=== PATIENT | female | born 1985 | race Caucasian/White ===

== ENCOUNTER 2019-06-05 13:23 | Emergency (ER) | payer OTHER ==
[~2019-06-05] VITALS: Ht 152.4 cm; Wt 84.1 kg
[2019-06-05 13:27] VITALS: BP 145/87
--- NOTE | 2019-06-05 13:40 | NUR ---
33F C/O ABD CRAMPING X1 WEEK, VAGINAL BLEEDING X4 DAYS, AND VAGINAL PAIN STARTING LAST NIGHT. 1-3 WEEKS PREGNEANT, LMP 05/17/19, , KATHLEEN 02/22/20. WAS AT [facility] ON SUNDAY FOR SAME ABD CRAMPING, FOUND OUT SHE WAS . BEDRAILS UP X1, BED LOCKED AND LOW. ERMD TO EVAL PATIENT. MEDHX:GASTRITIS RX:PRENATALS, FOLIC ACID
--- NOTE | 2019-06-05 14:32 | NUR ---
URINE SAMPLE TAKEN BY LAB.
[2019-06-05 14:35] LABS: APPEARANCE,URINE SL CLOUDY (CLEAR); BILIRUBIN,URINE NEGATIVE (NEGATIVE); BLOOD, URINE 3+ (NEGATIVE); COLOR,URINE DARK YELLOW (YELLOW); LEUKOCYTE ESTERASE ,URINE 2+ (NEGATIVE); NITRITE, URINE NEGATIVE (NEGATIVE); UGLUCOSE NEGATIVE (NEGATIVE)
[2019-06-05 14:54] LABS: RBC,URINE 11-20 (MOD) /HPF (0-5); WBC,URINE >25 (MANY) /HPF (0-5)
--- NOTE | 2019-06-05 15:51 | NUR ---
US TECH AT BEDSIDE
--- NOTE | 2019-06-05 17:06 | NUR ---
RHINA BUCKLEY FOR PELVIC EXAM.
--- NOTE | 2019-06-05 17:06 | NUR ---
DR. BUCKLEY BEDSIDE EVALUATING PT
--- NOTE | 2019-06-05 17:55 | NUR ---
DR. BYRD AT BEDSIDE.
[2019-06-05 18:10] VITALS: BP 123/76
--- NOTE | 2019-06-05 18:10 | NUR ---
Patient discharged with v/s stable. Written and verbal after care instructions given and explained. Patient verbalized understanding. Ambulatory with steady gait with at side. All questions addressed prior to discharge. Advised to follow up with PMD.
== END 2019-06-05 18:10 | disposition home or self-care (01) ==
LOC: MED 13:23
DX: O26.891 Other specified pregnancy related conditions, first trimester (principal); R10.30 Lower abdominal pain, unspecified; O20.9 Hemorrhage in early pregnancy, unspecified; Z3A.01 Less than 8 weeks gestation of pregnancy; Z91.018 Allergy to other foods; Z88.6 Allergy status to analgesic agent; Z91.011 Allergy to milk products; Z87.19 Personal history of other diseases of the digestive system
CPT/HCPCS: 36415; 76801; 81001; 84702; 86901; 87086; 99284; Q0092

== ENCOUNTER 2020-01-10 11:56 | Emergency (ER) | payer OTHER ==
[~2020-01-10] VITALS: Ht 152.4 cm; Wt 80.8 kg
[2020-01-10 12:15] VITALS: BP 149/90
--- NOTE | 2020-01-10 12:23 | NUR ---
34 Y/O F C/C RLQ ABD PAIN 11/28, NON RADIATING, PULSATING SENSATION X THIS MORNING. PER PT DISCOMFORT. PT FURTHER SPOTTING X 1 DAY. PER PT 6 WEEKS . PREG HX TWO PREGNANCIES, ONE MISCARRIAGE. ALLERGIES TYLENOL. HX ASTHMA, POCS. NO RX. NO N/V. PT C/C OF DIARRHEA X 1 DAY. SIDE RAIL X1. FAMILY AT BEDSIDE.
[2020-01-10] MEDS ORDERED: PREN-380 PO (12:27)
[2020-01-10] MEDS ORDERED: PRON INH (12:27)
[2020-01-10 13:31] LABS: BASOPHILS # (AUTO) 0.1 K/uL (0.00-0.22); BASOPHILS % (AUTO) 0.8 % (0.0-2.0); EOSINOPHILS # (AUTO) 0.2 K/uL (0-0.4); EOSINOPHILS % (AUTO) 2.4 % (0.0-4.0); HEMATOCRIT 43.2 % (36-48); HEMOGLOBIN 14.9 g/dL (12.0-16.0); LYMPHOCYTES % (AUTO) 26.5 % (20.5-51.1); MEAN CORPUSCULAR HEMOGLOBIN 31 pg (27-31); MEAN CORPUSCULAR HGB CONC 35 g/dL (33-37); MEAN CORPUSCULAR VOLUME 90.5 fL (80-94); MONOCYTES # (AUTO) 0.4 K/uL (0.8-1.0); NEUTROPHILS # (AUTO) 4.8 K/uL (1.8-7.7); NEUTROPHILS % (AUTO) 65.3 % (42.2-75.2); PLATELET COUNT (AUTO) 313 K/uL (140-450); RED BLOOD CELL COUNT(AUTO) 4.77 MIL/uL (4.20-5.40); RED CELL DISTRIBUTION WIDTH 12.9 % (11.6-13.7); WHITE BLOOD COUNT (AUTO) 7.4 K/uL (4.8-10.8)
--- NOTE | 2020-01-10 13:58 | NUR ---
PT RESTING IN BED, SIDE RAIL X1
[2020-01-10 14:43] LABS: APPEARANCE,URINE CLEAR (CLEAR); BILIRUBIN,URINE NEGATIVE (NEGATIVE); BLOOD, URINE NEGATIVE (NEGATIVE); COLOR,URINE YELLOW (YELLOW); LEUKOCYTE ESTERASE ,URINE TRACE (NEGATIVE); NITRITE, URINE NEGATIVE (NEGATIVE); PH,URINE 6.5 (5.0-9.0); UGLUCOSE NEGATIVE (NEGATIVE)
[2020-01-10 14:52] LABS: RBC,URINE 0 /HPF (0-5); WBC,URINE 0-5 /HPF (0-5)
[2020-01-10 15:32] VITALS: BP 142/84
--- NOTE | 2020-01-10 15:32 | NUR ---
Patient discharged with v/s stable. Written and verbal after care instructions given and explained. Patient verbalized understanding. Ambulatory with steady gait. All questions addressed prior to discharge. Advised to follow up with PMD.
== END 2020-01-10 15:32 | disposition home or self-care (01) ==
LOC: MED 11:56
DX: O46.91 Antepartum hemorrhage, unspecified, first trimester (principal); O26.91 Pregnancy related conditions, unspecified, first trimester; R10.9 Unspecified abdominal pain; J45.909 Unspecified asthma, uncomplicated; Z79.899 Other long term (current) drug therapy; Z88.6 Allergy status to analgesic agent; Z91.018 Allergy to other foods
CPT/HCPCS: 36415; 76817; 81001; 81025; 84702; 85025; 86900; 86901; 99284; Q0092

== ENCOUNTER 2020-01-14 16:36 | Emergency (ER) | payer OTHER ==
[~2020-01-14] VITALS: Ht 152.4 cm; Wt 80.3 kg
[~2020-01-14 16:36] MED LIST: PREN-380 PO; PRON INH
[2020-01-14 16:43] VITALS: BP 133/69
--- NOTE | 2020-01-14 17:05 | NUR ---
34 YO F, , CURRENTLY 4 WEEKS AOG, C/O VAGINAL BLEEDING SINCE THIS AM. PT STATES ACCOMPANYING LOWER ABDOMINAL PAIN- 5/10, CRAMPING. +NAUSEA, -VOMITING. PATIENT POSITIONED COMFORTABLY IN BED. CHANGED TO PT GOWN. URINE COLLECTED. ERMD MADE AWARE. PMH: PCOS, ASTHMA MEDS: , VIT D ALLERGIES: ACETAMINOPHEN, DAIRY, WHEAT
[2020-01-14 17:50] LABS: BASOPHILS # (AUTO) 0.1 K/uL (0.00-0.22); EOSINOPHILS # (AUTO) 0.2 K/uL (0-0.4); EOSINOPHILS % (AUTO) 1.8 % (0.0-4.0); HEMATOCRIT 42.9 % (36-48); HEMOGLOBIN 14.6 g/dL (12.0-16.0); LYMPHOCYTES # (AUTO) 2.1 K/uL (2.5-16.5); LYMPHOCYTES % (AUTO) 23.4 % (20.5-51.1); MEAN CORPUSCULAR HEMOGLOBIN 31 pg (27-31); MEAN CORPUSCULAR HGB CONC 34 g/dL (33-37); MEAN CORPUSCULAR VOLUME 90.5 fL (80-94); MONOCYTES # (AUTO) 0.5 K/uL (0.8-1.0); MONOCYTES % (AUTO) 5.9 % (1.7-9.3); NEUTROPHILS % (AUTO) 67.9 % (42.2-75.2); PLATELET COUNT (AUTO) 316 K/uL (140-450); RED BLOOD CELL COUNT(AUTO) 4.74 MIL/uL (4.20-5.40); RED CELL DISTRIBUTION WIDTH 12.8 % (11.6-13.7); WHITE BLOOD COUNT (AUTO) 8.8 K/uL (4.8-10.8)
[2020-01-14 19:31] LABS: APPEARANCE,URINE CLEAR (CLEAR); BILIRUBIN,URINE NEGATIVE (NEGATIVE); BLOOD, URINE 2+ (NEGATIVE); COLOR,URINE YELLOW (YELLOW); LEUKOCYTE ESTERASE ,URINE TRACE (NEGATIVE); NITRITE, URINE NEGATIVE (NEGATIVE); UGLUCOSE NEGATIVE (NEGATIVE)
[2020-01-14 19:35] VITALS: BP 133/69
--- NOTE | 2020-01-14 19:35 | NUR ---
Patient discharged with v/s stable. Written and verbal after care instructions about in first trimester given and explained. Patient verbalized understanding. Ambulatory with steady gait. All questions addressed prior to discharge. Advised to follow up with PMD and OB
[2020-01-14 19:44] LABS: WBC,URINE 0-5 /HPF (0-5)
== END 2020-01-14 19:35 | disposition home or self-care (01) ==
LOC: MED 16:36
DX: O46.91 Antepartum hemorrhage, unspecified, first trimester (principal); O26.891 Other specified pregnancy related conditions, first trimester; R10.9 Unspecified abdominal pain; J45.909 Unspecified asthma, uncomplicated; Z79.899 Other long term (current) drug therapy; Z88.6 Allergy status to analgesic agent; Z91.018 Allergy to other foods
CPT/HCPCS: 36415; 81001; 81025; 84702; 85025; 99283

== ENCOUNTER 2020-01-17 10:31 | Inpatient (IN) | payer OTHER ==
[~2020-01-17] VITALS: Ht 152.4 cm; Wt 80.0 kg
[2020-01-17 10:32] VITALS: BP 114/69
--- NOTE | 2020-01-17 10:36 | NUR ---
Patient ambulated to bed 7. RN evaluating patient at bedside.
[2020-01-17] MEDS ORDERED: NACL 0.9% 1,000 ML IV ONE (10:45)
--- NOTE | 2020-01-17 11:05 | NUR ---
Dr. Parisi is evaluating the patient at bedside.
[2020-01-17 11:11] LABS: BASOPHILS % (AUTO) 0.6 % (0.0-2.0); EOSINOPHILS # (AUTO) 0.2 K/uL (0-0.4); EOSINOPHILS % (AUTO) 2.5 % (0.0-4.0); HEMATOCRIT 41.8 % (36-48); HEMOGLOBIN 14.8 g/dL (12.0-16.0); LYMPHOCYTES # (AUTO) 1.6 K/uL (2.5-16.5); LYMPHOCYTES % (AUTO) 21.1 % (20.5-51.1); MEAN CORPUSCULAR HEMOGLOBIN 32 pg (27-31); MEAN CORPUSCULAR HGB CONC 36 g/dL (33-37); MEAN CORPUSCULAR VOLUME 89.5 fL (80-94); MONOCYTES # (AUTO) 0.4 K/uL (0.8-1.0); MONOCYTES % (AUTO) 4.8 % (1.7-9.3); NEUTROPHILS # (AUTO) 5.3 K/uL (1.8-7.7); PLATELET COUNT (AUTO) 308 K/uL (140-450); RED BLOOD CELL COUNT(AUTO) 4.67 MIL/uL (4.20-5.40); RED CELL DISTRIBUTION WIDTH 12.8 % (11.6-13.7); WHITE BLOOD COUNT (AUTO) 7.5 K/uL (4.8-10.8)
[2020-01-17 11:43] LABS: PROTHROMBIN TIME 10.4 secs (10.8-13.4)
[2020-01-17 11:45] LABS: ALBUMIN 3.8 g/dL (3.4-5.0); ANION GAP 12.9 (8-16); CARBON DIOXIDE 25.1 mmol/L (21-32); CREATININE 0.8 mg/dL (0.6-1.3); TOTAL BILIRUBIN 0.3 mg/dL (0.0-1.0)
--- NOTE | 2020-01-17 11:45 | NUR ---
PT REFFERED TO ER FOR ADMISSION BY DR BYRD FOR D&C AFTER MISSED MISCARRAIGE. PT DENIES PAIN OR ACTIVE VAGINAL BLEEDING AT THIS TIME. BED IN LOW POSITION, PT PROVIDED WITH GOWN AND BLANKET.
--- NOTE | 2020-01-17 12:34 | NUR ---
ADMITTED TO [facility]--ER TO OR FOR PROCEDURE THEN TO ROOM---REPORT GIVEN TO TO [place] OR
[2020-01-17] MEDS ORDERED: DEXAMETHASONE 4 MG/ML VIAL ONE (13:40)
[2020-01-17] MEDS ORDERED: MIDAZOLAM 2 MG/2 ML VIAL ONE (13:40)
[2020-01-17] MEDS ORDERED: fentaNYL 0.05 MG/ML VIAL ONE (13:40)
[2020-01-17] MEDS ORDERED: ONDANSETRON 4 MG/2 ML VIAL ONE (13:40)
[2020-01-17] MEDS ORDERED: PROPOFOL 200 MG/20 ML VIAL IV ONE (13:40)
[2020-01-17] MEDS ORDERED: KETOROLAC 30 MG/ML VIAL ONE (13:40)
[2020-01-17] MEDS ORDERED: MEPERIDINE 50 MG/ML SYR ONE (13:40)
[2020-01-17] MEDS ORDERED: LACTATED RINGERS 1,000 ML IV SCH (14:27)
[2020-01-17] MEDS ORDERED: ONDANSETRON 4 MG/2 ML VIAL IVP PRN (14:30)
[2020-01-17] MEDS ORDERED: diphenhydrAMINE 50 MG/ML VIAL IVP PRN (14:30)
[2020-01-17] MEDS ORDERED: HYDROmorphone 1 MG/ML AMP IVP PRN (14:30)
[2020-01-17] MEDS ORDERED: MEPERIDINE 25 MG/ML SYR IVP PRN (14:30)
[2020-01-17] MEDS ORDERED: HYDROmorphone PFS 2 MG/ML SYR ONE (14:55)
[2020-01-17] MEDS ORDERED: KETOROLAC 30 MG/ML VIAL IVP SCH (15:15)
[2020-01-17 15:25] VITALS: BP 113/64
--- NOTE | 2020-01-17 15:25 | NUR ---
Patient admitted into room 112B from OR via hospital bed. Received bedside report from OR nurse Andra. Pt drowsy, able to open eyes, respond verbally, and follow simple commands. Oriented x 4. Left hand IV intact with ongoing LR @ 120ml/hr. Medical hx obtained from patient. No signs if distress, no c/o pain. Pt oriented to room & unit, verbalized understanding. Call light within reach. Called spouse Tien on the phone per pt request and notified of admission to M/S floor.
--- NOTE | 2020-01-17 15:52 | NUR ---
Tien (spouse) arrived at bedside to visit pt.
--- NOTE | 2020-01-17 16:49 | NUR ---
Pt assisted to toilet, able to amb with handheld assist. Pt voided moderate amount urine, sanguineous vaginal discharge present. Able to amb back to bed with standby assist. No bladder distention palpated. Spouse at bedside.
--- NOTE | 2020-01-17 17:45 | NUR ---
Dinner tray provided to patient. Assisted to upright position with overbed tray in front of pt. Informed patient that per Dr Hilliard, she is ok to discharge home if voiding well and tolerating food. Pt verbalized understanding. Spouse at bedside.
--- NOTE | 2020-01-17 18:15 | NUR ---
Patient states the smell of pasta is making her nauseated. Ordered chicken broth. Pt tolerated fluids well.
--- NOTE | 2020-01-17 18:31 | NUR ---
Chicken broth provided. Pt c/o nausea, no vomiting episode. Will cont to monitor.
--- NOTE | 2020-01-17 18:50 | NUR ---
Pt states she is unable to eat d/t nausea and feeling like she will throw up. Instructed spouse to assist pt to walk around unit. Spouse and patient agreed. Seen patient ambulating outside room with standby assist.
--- NOTE | 2020-01-17 19:14 | NUR ---
Report given to pm nurse Fara. Pt now resting in bed, spouse at bedside.
--- NOTE | 2020-01-17 19:15 | NUR ---
RECD. RESTING IN BED, AWAKE, A/OX4. RESPIRATION EVEN AND UNLABORED. IV OF LR AT 120 ML/HR INFUSING, LEFT HAND G20. TOLERATING CLEAR LIQUID DIET. VOIDING WELL. STATED HER BLOOD DISCHARGE IS MINIMAL. ADDITIONAL DISCHARGE INSTRUCTIONS GIVEN. VERBALIZED UNDERSTANDING. PAIN IN THE ABDOMEN IS 1/10, STATED TOLERABLE. AT THE BEDSIDE.
--- NOTE | 2020-01-17 20:30 | NUR ---
RESTING COMFORTABLY IN BED, EATING JELLO. NO N/V NOTED.
--- NOTE | 2020-01-17 21:40 | NUR ---
STATED FEELING BETTER. IV TAKEN OUT. PREPARED TO GO HOME BY CHANGING INTO HER CLOTHES.
--- NOTE | 2020-01-17 21:55 | NUR ---
ALL BELONGINGS TAKEN HOME. DISCHARGE PAPER SIGNED. TAKEN TO HOSPITAL LOBBY PARKING VIA W/C IN STABLE CONDITION, ACCOMPANIED BY PLASTIC FINISHER AND FOR DISCHARGE TO HOME.
== END 2020-01-17 21:55 | disposition home or self-care (01) | DRG 544 ==
LOC: MED 10:31 → MTU 12:01
PROVIDERS: ADMIT Obstetrics & Gynecology; ATTEND Obstetrics & Gynecology
PROC: 10D17ZZ Extraction of Products of Conception, Retained, Via Natural or Artificial Opening (ICD-10-PCS; principal; 2020-01-17 12:30)
DX: O02.1 Missed abortion (principal); Z3A.01 Less than 8 weeks gestation of pregnancy; Z91.011 Allergy to milk products; Z88.8 Allergy status to other drugs, medicaments and biological substances; Z91.018 Allergy to other foods
CPT/HCPCS: 36415; 80053; 84702; 85025; 85610; 85730; 86886; 86900; 86901; 88305; 96360; 99285; J1100; J1170; J1885; J2175; J2250; J2405; J2704; J3010; J7030

== ENCOUNTER 2020-01-30 13:04 | Emergency (ER) | payer OTHER ==
[~2020-01-30] VITALS: Ht 152.4 cm; Wt 78.9 kg
[2020-01-30 13:12] VITALS: BP 126/73
[2020-01-30] MEDS ORDERED: NACL 0.9% 1,000 ML IV ONE (13:25)
[2020-01-30 13:48] LABS: BASOPHILS # (AUTO) 0.1 K/uL (0.00-0.22); BASOPHILS % (AUTO) 0.6 % (0.0-2.0); EOSINOPHILS # (AUTO) 0.2 K/uL (0-0.4); EOSINOPHILS % (AUTO) 1.9 % (0.0-4.0); HEMATOCRIT 43.1 % (36-48); HEMOGLOBIN 14.5 g/dL (12.0-16.0); LYMPHOCYTES # (AUTO) 2.2 K/uL (2.5-16.5); LYMPHOCYTES % (AUTO) 22.4 % (20.5-51.1); MEAN CORPUSCULAR HEMOGLOBIN 31 pg (27-31); MEAN CORPUSCULAR HGB CONC 34 g/dL (33-37); MEAN CORPUSCULAR VOLUME 93.1 fL (80-94); MONOCYTES # (AUTO) 0.5 K/uL (0.8-1.0); MONOCYTES % (AUTO) 5.1 % (1.7-9.3); PLATELET COUNT (AUTO) 341 K/uL (140-450); RED BLOOD CELL COUNT(AUTO) 4.63 MIL/uL (4.20-5.40)
[2020-01-30 14:31] LABS: ALBUMIN 3.8 g/dL (3.4-5.0); ANION GAP 15.2 (8-16); CARBON DIOXIDE 22.8 mmol/L (21-32); CREATININE 0.9 mg/dL (0.6-1.3); TOTAL BILIRUBIN 0.2 mg/dL (0.0-1.0)
[2020-01-30 14:32] LABS: PROTHROMBIN TIME 9.8 secs (10.8-13.4)
[2020-01-30] MEDS ORDERED: KETOROLAC 30 MG/ML VIAL IVP ONE (14:40)
[2020-01-30 14:59] VITALS: BP 126/73
== END 2020-01-30 14:58 | disposition home or self-care (01) ==
LOC: MED 13:04
DX: N93.9 Abnormal uterine and vaginal bleeding, unspecified (principal); J45.909 Unspecified asthma, uncomplicated; Z79.899 Other long term (current) drug therapy; Z88.6 Allergy status to analgesic agent; Z91.018 Allergy to other foods
CPT/HCPCS: 36415; 80053; 85025; 85610; 85730; 96374; 99283; J1885

== ENCOUNTER 2023-10-20 18:52 | Emergency (ER) | payer BC, OTHER ==
[~2023-10-20] VITALS: Ht 152.4 cm; Wt 86.6 kg
[2023-10-20 19:26] VITALS: BP 142/89; PULSE 107; RESP 22; TEMP 98; O2SAT 99
[2023-10-20] MEDS ORDERED: NACL 0.9% 1,000 ML IV ONE (20:55)
[2023-10-20] MEDS ORDERED: ONDANSETRON 4 MG/2 ML VIAL IVP ONE (20:55)
[2023-10-20] MEDS ORDERED: KETOROLAC 30 MG/ML VIAL IVP ONE (20:55)
[2023-10-20] MEDS ORDERED: KETOROLAC 60 MG/2 ML VIAL IM ONE (21:20)
[2023-10-20] MEDS ORDERED: IBUP-2213 PO (21:22)
[2023-10-20] MEDS ORDERED: ONDA8TAB87 PO (21:22)
[2023-10-20 22:40] VITALS: BP 134/72; PULSE 79; RESP 20; TEMP 97.4; O2SAT 98
== END 2023-10-20 22:40 | disposition home or self-care (01) ==
LOC: MED 18:52
DX: R11.2 Nausea with vomiting, unspecified (principal); R19.7 Diarrhea, unspecified; R10.9 Unspecified abdominal pain; J45.909 Unspecified asthma, uncomplicated; Z88.5 Allergy status to narcotic agent; Z88.8 Allergy status to other drugs, medicaments and biological substances; Z79.899 Other long term (current) drug therapy
CPT/HCPCS: 81025; 96361; 96374; 96375; 99284; J1885; J2405; J7030; 81002

== ENCOUNTER 2024-03-31 04:10 | Emergency (ER) | payer BC, OTHER ==
[~2024-03-31] VITALS: Ht 152.4 cm; Wt 88.0 kg
[~2024-03-31 04:10] MED LIST changes: +IBUP-2213 PO; +ONDA8TAB87 PO
[2024-03-31 04:16] VITALS: BP 135/76; PULSE 78; RESP 20; TEMP 97.7; O2SAT 97
[2024-03-31] MEDS: NACL 0.9% 1,000 ML IV ONE (05:10)
[2024-03-31 05:29] LABS: BASOPHILS # (AUTO) 0.1 K/uL (0.00-0.22); BASOPHILS % (AUTO) 0.7 % (0.0-2.0); EOSINOPHILS # (AUTO) 0.3 K/uL (0-0.4); EOSINOPHILS % (AUTO) 3.3 % (0.0-4.0); HEMATOCRIT 42.5 % (36-48); HEMOGLOBIN 14.7 g/dL (12.0-16.0); LYMPHOCYTES # (AUTO) 1.9 K/uL (2.5-16.5); LYMPHOCYTES % (AUTO) 19.7 % (20.5-51.1); MEAN CORPUSCULAR HEMOGLOBIN 32 pg (27-31); MEAN CORPUSCULAR HGB CONC 35 g/dL (33-37); MEAN CORPUSCULAR VOLUME 91.5 fL (80-94); MONOCYTES # (AUTO) 0.5 K/uL (0.8-1.0); NEUTROPHILS # (AUTO) 6.8 K/uL (1.8-7.7); NEUTROPHILS % (AUTO) 71.3 % (42.2-75.2); PLATELET COUNT (AUTO) 318 K/uL (140-450); RED BLOOD CELL COUNT(AUTO) 4.65 MIL/uL (4.20-5.40); RED CELL DISTRIBUTION WIDTH 13.3 % (11.6-13.7); WHITE BLOOD COUNT (AUTO) 9.5 K/uL (4.8-10.8)
[2024-03-31 05:40] LABS: ANION GAP 11.9 (8-16); CALCIUM 8.9 mg/dL (8.5-10.1); CARBON DIOXIDE 25.1 mmol/L (21-32); CREATININE 0.8 mg/dL (0.6-1.3)
[2024-03-31 05:52] LABS: ALBUMIN 3.7 g/dL (3.4-5.0); TOTAL BILIRUBIN 0.6 mg/dL (0.0-1.0); TOTAL PROTEIN, SERUM 7.9 g/dL (6.4-8.2)
[2024-03-31 07:54] LABS: APPEARANCE,URINE CLEAR (CLEAR); BILIRUBIN,URINE NEGATIVE (NEGATIVE); BLOOD, URINE NEGATIVE (NEGATIVE); COLOR,URINE YELLOW (YELLOW); LEUKOCYTE ESTERASE ,URINE TRACE (NEGATIVE); NITRITE, URINE NEGATIVE (NEGATIVE); PH,URINE 6.5 (5.0-9.0); PROTEIN,URINE NEGATIVE (NEGATIVE); UGLUCOSE NEGATIVE (NEGATIVE); UROBILINOGEN,URINE 0.2 EU/dL (0.2 - 1)
[2024-03-31 08:10] LABS: BACTERIA,URINE OCCASSIONAL /HPF (None Seen); RBC,URINE 0-5 /HPF (0-5); SQUAMOUS EPITHELIAL CELL,UR 4-10 (MOD) /LPF (0-3 (FEW)); WBC,URINE 0-5 /HPF (0-5)
[2024-03-31] MEDS ORDERED: ACET-8905 PO (11:37)
[2024-03-31] MEDS ORDERED: ONDA8TAB87 PO (12:03)
[2024-03-31] MEDS ORDERED: IBUP-2213 PO (12:03)
[2024-03-31 12:07] VITALS: BP 128/76; PULSE 82; RESP 17; TEMP 36.55848; O2SAT 96
== END 2024-03-31 12:07 | disposition home or self-care (01) ==
LOC: MED 04:10
DX: O26.891 Other specified pregnancy related conditions, first trimester (principal); R10.11 Right upper quadrant pain; O26.611 Liver and biliary tract disorders in pregnancy, first trimester; K80.20 Calculus of gallbladder without cholecystitis without obstruction; O99.511 Diseases of the respiratory system complicating pregnancy, first trimester; J45.909 Unspecified asthma, uncomplicated; Z3A.01 Less than 8 weeks gestation of pregnancy; Z79.899 Other long term (current) drug therapy; Z88.8 Allergy status to other drugs, medicaments and biological substances; Z91.018 Allergy to other foods
CPT/HCPCS: 36415; 76705; 76801; 76817; 80048; 80076; 81001; 83690; 84702; 85025; 86900; 86901; 96360; 99284; J7030; Q0092